=== PATIENT | male | born 1975 | race Two or more races ===

== ENCOUNTER 2016-12-06 16:37 | Emergency (ER) | payer MEDICAID ==
[~2016-12-06] VITALS: Ht 182.9 cm; Wt 65.8 kg
[~2016-12-06 16:37] MED LIST: FURO40TA4 PO; LACT10SO PO; PANT40TA2 PO; SPIR25TA89 PO
[2016-12-06] MEDS ORDERED: SODIUM CHLORIDE 0.9% 1,000 ML IV ONE (17:19)
[2016-12-06 18:07] LABS: DEFINITIVE VIEW TRANSMISSION; Hematocrit 19.3 % (41.0-53.0); Mean Corpuscular Hemoglobin 40.7 pg (28.0-32.0); Mean Corpuscular Hgb Conc. 36.1 g/dL (32.0-36.0); Mean Corpuscular Volume 112.6 fL (80.0-100.0); Mean Platelet Volume 7.5 fL (7.4-10.4); Platelet Count (auto) 54 10^3/uL (140-450); Red Cell Distribution Width 16.2 % (11.6-16.0); SUSPECT VIEW TRANSMISSION; White Blood Cell 5.9 10^3/uL (4.4-10.8)
[2016-12-06 18:14] LABS: Partial Thromboplastin Time 30.5 sec (22.64-33.71)
[2016-12-06] MEDS ORDERED: ONDANSETRON HCL 4 MG/2 ML VIAL IV ONE (18:15)
[2016-12-06 18:26] LABS: Albumin 2.4 g/dL (3.4-5.0); BUN/Creatinine Ratio 19.1; Calcium 8.2 mg/dL (8.5-10.1); Potassium 4.8 mmol/L (3.5-5.1)
[2016-12-06 18:36] LABS: INR 1.56 (0.9-1.15); Prothrombin Time 16.1 sec (9.37-12.3)
[2016-12-06 18:37] LABS: Bilirubin, Total 17.7 mg/dL (0.2-1.0); Total Protein 5.8 g/dL (6.4-8.2)
[2016-12-06 18:45] LABS: Metamyelocytes % 0; Myelocytes % 0; Promyelocytes % 0; Reactive Lymphocytes 0
[2016-12-06 19:35] LABS: Anisocytosis Moderate; Platelet Estimate Decreased
[2016-12-06 19:36] LABS: Macrocytosis Moderate
[2016-12-06 21:33] VITALS: BP 84/42
[2016-12-06 21:38] VITALS: BP 87/36
[2016-12-06 21:43] VITALS: BP 92/48
[2016-12-06 23:08] VITALS: BP 92/40
[2016-12-07 00:30] VITALS: BP 84/48
[2016-12-07 00:36] VITALS: BP 93/43
[2016-12-07 03:02] LABS: Hematocrit 21.8 % (41.0-53.0); Hemoglobin 7.8 g/dL (13.5-17.5)
[2016-12-07 06:29] VITALS: BP 96/55
== END 2016-12-07 06:35 | disposition home or self-care (01) ==
LOC: ER 16:58
DX: K70.30 Alcoholic cirrhosis of liver without ascites (principal)
CPT/HCPCS: 36415; 36430; 71010; 80053; 82140; 83690; 83735; 84443; 84484; 85007; 85014; 85018; 85027; 85610; 85730; 86850; 86900; 86901; 86920; 93005; 94761; 96361; 96374; 99285; J2405; J7030; P9016

== ENCOUNTER 2016-12-21 03:23 | Emergency (ER) | payer MEDICAID ==
[~2016-12-21] VITALS: Ht 182.9 cm; Wt 70.3 kg
[2016-12-21 04:03] LABS: DEFINITIVE VIEW TRANSMISSION; Hematocrit 23.6 % (41.0-53.0); Hemoglobin 8.3 g/dL (13.5-17.5); Mean Corpuscular Hemoglobin 36.4 pg (28.0-32.0); Mean Corpuscular Volume 103.9 fL (80.0-100.0); Mean Platelet Volume 8.3 fL (7.4-10.4); Platelet Count (auto) 53 10^3/uL (140-450); SUSPECT VIEW TRANSMISSION; White Blood Cell 2.8 10^3/uL (4.4-10.8)
[2016-12-21 04:26] LABS: Albumin 2.9 g/dL (3.4-5.0); BUN/Creatinine Ratio 7.4; Calcium 8.2 mg/dL (8.5-10.1); Magnesium 1.8 mg/dL (1.6-2.6); Potassium 3.4 mmol/L (3.5-5.1)
[2016-12-21 04:31] LABS: Partial Thromboplastin Time 30.9 sec (22.64-33.71)
[2016-12-21 04:32] LABS: Bilirubin, Total 18.8 mg/dL (0.2-1.0); Total Protein 5.9 g/dL (6.4-8.2)
[2016-12-21 04:40] LABS: Prothrombin Time 18.3 sec (9.37-12.3)
[2016-12-21 04:41] LABS: INR 1.78 (0.9-1.15)
[2016-12-21 04:48] LABS: Metamyelocytes % 0; Promyelocytes % 0; Reactive Lymphocytes 0
[2016-12-21 05:04] LABS: Myelocytes % 1; Platelet Estimate Decreased
[2016-12-21 05:05] LABS: Anisocytosis Moderate; Burr Cells MODERATE; Macrocytosis Slight
[2016-12-21 05:06] LABS: Schistocytes FEW
[2016-12-21] MEDS ORDERED: MORPHINE SULFATE 4 MG/ML SYRG IV ONE ×2 (07:30→10:30)
[2016-12-21] MEDS ORDERED: ONDANSETRON HCL 4 MG/2 ML VIAL IV ONE ×2 (07:30→10:30)
[2016-12-21 09:30] LABS: Urine Bilirubin 2+ (Negative); Urine Blood Negative /uL (Negative); Urine Color Brown (Yellow); Urine Glucose Normal (Normal); Urine Ketone Negative (Negative); Urine Mucus FEW (None Seen); Urine Nitrite Negative (Negative); Urine RBC 1 /hpf (0 - 3); Urine Squamous Epithelial Cell FEW /hpf (<5); Urine pH 5.5 (5.0-8.0)
[2016-12-21] MEDS ORDERED: HYDROmorphone HCL 2 MG/ML VL IV ONE (11:00)
[2016-12-21 11:11] VITALS: BP 120/58
== END 2016-12-21 14:06 | disposition home or self-care (01) ==
LOC: EDBD 03:23 → ER 03:28
DX: K80.50 Calculus of bile duct without cholangitis or cholecystitis without obstruction (principal); J90 Pleural effusion, not elsewhere classified; K72.90 Hepatic failure, unspecified without coma; D68.9 Coagulation defect, unspecified; D61.818 Other pancytopenia; D73.1 Hypersplenism; K46.9 Unspecified abdominal hernia without obstruction or gangrene; R18.8 Other ascites; N39.0 Urinary tract infection, site not specified; K21.9 Gastro-esophageal reflux disease without esophagitis; M19.90 Unspecified osteoarthritis, unspecified site
CPT/HCPCS: 36415; 71010; 74176; 80053; 81001; 83690; 83735; 84484; 85007; 85027; 85610; 85730; 93005; 96374; 96375; 96376; 99285; J1170; J2270; J2405

== ENCOUNTER 2017-01-11 23:51 | Emergency (ER) | payer MEDICAID ==
[~2017-01-11] VITALS: Ht 182.9 cm; Wt 68.0 kg
[2017-01-12] MEDS ORDERED: ONDANSETRON HCL 4 MG/2 ML VIAL IV ONE (02:00)
[2017-01-12] MEDS ORDERED: MORPHINE SULFATE 4 MG/ML SYRG IV ONE (02:00)
[2017-01-12] MEDS ORDERED: traMADol HCL 50 MG TAB PO ONE (05:30)
[2017-01-12 05:37] VITALS: BP 124/62
== END 2017-01-12 05:43 | disposition home or self-care (01) ==
LOC: EDUNIT# 23:51 → ER 23:51 → EDBD 23:51 → ER 01-12 05:43
DX: S16.1XXA Strain of muscle, fascia and tendon at neck level, initial encounter (principal); M62.838 Other muscle spasm; K74.60 Unspecified cirrhosis of liver; W01.0XXA Fall on same level from slipping, tripping and stumbling without subsequent striking against object, initial encounter; Y93.89 Activity, other specified; Y99.8 Other external cause status; Y92.89 Other specified places as the place of occurrence of the external cause
CPT/HCPCS: 72125; 73060; 96374; 96375; 99284; J2270; J2405